=== PATIENT | male | born 1950 | race African-American/Black ===

== ENCOUNTER 2024-12-30 01:09 | Inpatient (IN) | payer MEDICARE, MEDICAID ==
[~2024-12-30] VITALS: Ht 165.1 cm; Wt 62.6 kg
[2024-12-30 04:02] LABS: BASOPHILS % 0.9 % (0.0-2.0); EOSINOPHILS % 1.5 % (0.0-5.0); HEMATOCRIT. 33.1 % (42.0-52.0); HEMOGLOBIN. 10.7 g/dL (14.0-18.0); LYMPHOCYTES % 34.3 % (20.0-50.0); MEAN CORPUSCULAR HGB CONC 32.5 g/dL (31.0-37.0); MEAN CORPUSCULAR VOLUME 89.1 fL (80.0-94.0); MEAN PLATELET VOLUME 8.3 fl (7.4-10.4); MONOCYTES % 13.9 % (2.0-8.0); NEUTROPHILS % 49.4 % (40.0-76.0); PLATELET 283 x1000/uL (130-400); RED BLOOD CELL COUNT 3.71 mill/uL (4.7-6.1); RED CELL DISTRIBUTION WIDTH 17.6 % (11.6-14.6)
[2024-12-30 04:11] LABS: CHLORIDE 104 mEq/L (98-107); POTASSIUM 3.8 mEq/L (3.5-5.1); SODIUM 137 mEq/L (136-145)
[2024-12-30 04:12] LABS: CALCIUM 9.2 mg/dL (8.7-10.4); CARBON DIOXIDE 30 mEq/L (21-32)
[2024-12-30 04:17] LABS: CREATININE 0.6 mg/dL (0.6-1.3); GLUCOSE 83 mg/dL (70-105); UREA NITROGEN BLOOD 17 mg/dL (9-23)
[2024-12-30 04:19] LABS: INR 1.1; PARTIAL THROMBOPLASTIN TIME 41.6 sec (23.4-31.0); PROTHROMBIN TIME 12.2 sec (9.6-11.0)
[2024-12-30] MEDS: SODIUM CHLORIDE 0.9% 1,000 ML IV ONE ×2 (04:31→08:45)
[2024-12-30] MEDS: SODIUM CHLORIDE 0.9% (SEPSIS BOLUS) IV ONE (05:31)
[2024-12-30 05:40] LABS: TROPONIN I HIGH SENSITIVITY 4 ng/L (3.0-53)
[2024-12-30] MEDS: PIPERACILLIN/TAZO 3.375G/50ML 50 ML IV ONE (06:05)
[2024-12-30] MEDS: VANCOMYCIN 1G PREMIX 200 ML IV ONE (06:27)
[2024-12-30] MEDS ORDERED: ACETAMINOPHEN 325MG TABLET PO PRN ×2 (06:30)
[2024-12-30] MEDS ORDERED: IPRATROPIUM/ALBUTEROL 0.5-3(2.5)MG/3ML NEB NEB PRN (06:30)
[2024-12-30] MEDS ORDERED: CLONIDINE 0.1MG TABLET PO PRN (06:30)
[2024-12-30] MEDS ORDERED: ONDANSETRON HCL 4MG/2ML INJ IV PRN (06:30)
[2024-12-30] MEDS ORDERED: ENOXAPARIN 40MG/0.4ML SYR SUBCUT SCH (06:30)
[2024-12-30] MEDS ORDERED: MAGNESIUM/ALUMINUM HYDROXIDE/SIMETHICONE 30ML UDC PO PRN (06:30)
[2024-12-30 07:30] VITALS: BP 83/42; PULSE 54; RESP 12; O2SAT 98
[2024-12-30 08:00] VITALS: BP 82/54; PULSE 45; RESP 16; TEMP 35.6; O2SAT 100
[2024-12-30] MEDS ORDERED: SODIUM CHLORIDE 0.9% 1,000 ML IV SCH (08:45)
[2024-12-30 10:13] LABS: PHOSPHORUS 3.9 mg/dL (2.5-4.9)
[2024-12-30 11:28] VITALS: BP 83/42; PULSE 54; RESP 18; TEMP 36.7
[2024-12-30 12:00] VITALS: BP 88/57; PULSE 42; RESP 16; O2SAT 99
[2024-12-30] MEDS: LEVOTHYROXINE SODIUM 100MCG TABLET PO SCH (12:30)
[2024-12-30] MEDS: ENOXAPARIN 30MG/0.3ML SYR SUBCUT SCH (12:45)
[2024-12-30] MEDS: MAGNESIUM 2 G PREMIX 50 ML IV NR (12:46)
[2024-12-30] MEDS: DEXT 5%/0.9% NACL 1,000 ML IV SCH (12:47)
[2024-12-30] MEDS: SODIUM CHLORIDE 0.9% 500 ML IV ONE ×2 (12:58→13:00)
[2024-12-30] MEDS: SODIUM CHLORIDE 0.9% 1,000 ML IV SCH (13:00)
[2024-12-30] MEDS: PANTOPRAZOLE SODIUM 40 MG/VIAL IV SCH (14:28)
[2024-12-30 16:00] VITALS: BP_SYST 115; BP_SYST 88; BP_DIAS 57; BP_DIAS 64; PULSE 54; RESP 16; TEMP 36.7; O2SAT 100
[2024-12-30] MEDS ORDERED: DEXTROSE 50% WATER 50ML SYRINGE IV SCH (17:00)
[2024-12-30 20:00] VITALS: BP 121/72; PULSE 47; RESP 16; TEMP 32.5; O2SAT 97
[2024-12-30 20:17] LABS: T4 FREE 1.11 ng/dL (0.89-1.76); THYROID STIMULATING HORMONE 10.1 uIU/mL (0.55-4.78)
[2024-12-30] MEDS: DEXT 5%/0.45% NACL 1000ML 1,000 ML IV SCH (21:02)
[2024-12-30] MEDS: ATORVASTATIN CALCIUM 40MG TABLET PO SCH (23:20)
[2024-12-30] MEDS ORDERED: ATROPINE SULFATE 1MG/ML VIAL IV PRN (23:30)
[2024-12-30] MEDS ORDERED: ATROPINE SULFATE 1MG/10ML SYR IV PRN (23:32)
[2024-12-31] VITALS (12 sets, daily range): BP systolic 96–131; BP diastolic 64–90; PULSE 43–58; RESP 10–22; TEMP 35.7–36.4; O2SAT 90–99
[2024-12-31] MEDS ORDERED: *PATIENT'S OWN MEDICATION STORAGE XX SCH (03:45)
[2024-12-31 05:30] LABS: INR 1.1; PROTHROMBIN TIME 11.9 sec (9.6-11.0)
[2024-12-31 05:40] LABS: CHLORIDE 109 mEq/L (98-107); POTASSIUM 3.5 mEq/L (3.5-5.1); SODIUM 139 mEq/L (136-145)
[2024-12-31 05:41] LABS: CALCIUM 8.4 mg/dL (8.7-10.4); CARBON DIOXIDE 25 mEq/L (21-32)
[2024-12-31 05:46] LABS: CREATININE 0.5 mg/dL (0.6-1.3); GLUCOSE 134 mg/dL (70-105); UREA NITROGEN BLOOD 12 mg/dL (9-23)
[2024-12-31 05:48] LABS: ALANINE AMINOTRANSFERASE 92 IU/L (10-49); ALBUMIN 2.9 g/dL (3.2-4.8); ASPARTATE AMINOTRANSFERASE 58 IU/L (<34)
[2024-12-31 05:49] LABS: BILIRUBIN TOTAL 0.4 mg/dL (0.1-1.0); PROTEIN TOTAL 5.6 g/dL (6.0-8.3)
[2024-12-31 06:00] LABS: BASOPHILS % 0.4 % (0.0-2.0); EOSINOPHILS % 1.8 % (0.0-5.0); HEMATOCRIT. 30.9 % (42.0-52.0); HEMOGLOBIN. 10.1 g/dL (14.0-18.0); LYMPHOCYTES % 58.5 % (20.0-50.0); MEAN CORPUSCULAR HEMOGLOBIN 29.1 pg (28.0-32.0); MEAN CORPUSCULAR HGB CONC 32.7 g/dL (31.0-37.0); MEAN CORPUSCULAR VOLUME 89.1 fL (80.0-94.0); MEAN PLATELET VOLUME 8.9 fl (7.4-10.4); NEUTROPHILS % 26.3 % (40.0-76.0); PLATELET 244 x1000/uL (130-400); RED BLOOD CELL COUNT 3.47 mill/uL (4.7-6.1); WHITE BLOOD COUNT 2.4 x1000/uL (4.5-11.0)
[2025-01-01] VITALS (12 sets, daily range): BP systolic 86–125; BP diastolic 59–85; PULSE 50–69; RESP 12–20; TEMP 36–37.2; O2SAT 94–98
[2025-01-01 06:24] LABS: CALCIUM 8.3 mg/dL (8.7-10.4); CARBON DIOXIDE 25 mEq/L (21-32); CHLORIDE 109 mEq/L (98-107); POTASSIUM 3.1 mEq/L (3.5-5.1); SODIUM 141 mEq/L (136-145)
[2025-01-01 06:25] LABS: HEMATOCRIT 29.3 % (42.0-52.0); HEMOGLOBIN 9.6 g/dL (14.0-18.0); MEAN CORPUSCULAR HEMOGLOBIN 29.2 pg (28.0-32.0); MEAN CORPUSCULAR HGB CONC 32.9 g/dL (31.0-37.0); PLATELET 236 x1000/uL (130-400); RED BLOOD CELL COUNT 3.29 mill/uL (4.7-6.1); RED CELL DISTRIBUTION WIDTH 17.6 % (11.6-14.6)
[2025-01-01 06:29] LABS: CREATININE 0.6 mg/dL (0.6-1.3)
[2025-01-01 06:30] LABS: GLUCOSE 114 mg/dL (70-105); UREA NITROGEN BLOOD 7 mg/dL (9-23)
[2025-01-01 06:32] LABS: PHOSPHORUS 2.7 mg/dL (2.5-4.9)
[2025-01-01] MEDS: FAMOTIDINE 20MG/2ML VIAL IV SCH (09:13)
[2025-01-01] MEDS: MAGNESIUM 2 G PREMIX 50 ML IV NR (12:44)
[2025-01-01] MEDS: KCL 20MEQ/100ML PREMIX 100 ML IV SCH (15:04)
[2025-01-02] VITALS (13 sets, daily range): BP systolic 95–128; BP diastolic 62–78; PULSE 40–90; RESP 10–18; TEMP 35.5–36.6; O2SAT 96–100
[2025-01-02 05:42] LABS: BASOPHILS % 0.2 % (0.0-2.0); EOSINOPHILS % 1.8 % (0.0-5.0); HEMATOCRIT. 28.7 % (42.0-52.0); HEMOGLOBIN. 9.4 g/dL (14.0-18.0); LYMPHOCYTES % 66.7 % (20.0-50.0); MEAN CORPUSCULAR HEMOGLOBIN 28.8 pg (28.0-32.0); MEAN CORPUSCULAR HGB CONC 32.6 g/dL (31.0-37.0); MEAN CORPUSCULAR VOLUME 88.4 fL (80.0-94.0); NEUTROPHILS % 18.3 % (40.0-76.0); PLATELET 205 x1000/uL (130-400); RED BLOOD CELL COUNT 3.25 mill/uL (4.7-6.1); WHITE BLOOD COUNT 2.7 x1000/uL (4.5-11.0)
[2025-01-02 06:21] LABS: CALCIUM 8.3 mg/dL (8.7-10.4); CARBON DIOXIDE 26 mEq/L (21-32); CHLORIDE 109 mEq/L (98-107); POTASSIUM 3.4 mEq/L (3.5-5.1); SODIUM 144 mEq/L (136-145)
[2025-01-02 06:26] LABS: CREATININE 0.6 mg/dL (0.6-1.3)
[2025-01-02 06:27] LABS: GLUCOSE 85 mg/dL (70-105); UREA NITROGEN BLOOD 5 mg/dL (9-23)
[2025-01-03] VITALS (12 sets, daily range): BP systolic 90–130; BP diastolic 55–79; PULSE 47–87; RESP 13–22; TEMP 36.2–36.9; O2SAT 95–99
[2025-01-03 06:45] LABS: BASOPHILS % 0.5 % (0.0-2.0); EOSINOPHILS % 1.7 % (0.0-5.0); HEMATOCRIT. 27.5 % (42.0-52.0); HEMOGLOBIN. 9.3 g/dL (14.0-18.0); LYMPHOCYTES % 60.7 % (20.0-50.0); MEAN CORPUSCULAR HEMOGLOBIN 29.8 pg (28.0-32.0); MEAN CORPUSCULAR HGB CONC 33.7 g/dL (31.0-37.0); MEAN CORPUSCULAR VOLUME 88.4 fL (80.0-94.0); MONOCYTES % 9.7 % (2.0-8.0); NEUTROPHILS % 27.4 % (40.0-76.0); PLATELET 190 x1000/uL (130-400); RED BLOOD CELL COUNT 3.11 mill/uL (4.7-6.1); RED CELL DISTRIBUTION WIDTH 17.7 % (11.6-14.6); WHITE BLOOD COUNT 3.2 x1000/uL (4.5-11.0)
[2025-01-03 06:51] LABS: CHLORIDE 112 mEq/L (98-107); POTASSIUM 3.5 mEq/L (3.5-5.1); SODIUM 144 mEq/L (136-145)
[2025-01-03 06:52] LABS: CALCIUM 8.3 mg/dL (8.7-10.4); CARBON DIOXIDE 27 mEq/L (21-32)
[2025-01-03 06:57] LABS: CREATININE 0.7 mg/dL (0.6-1.3); GLUCOSE 92 mg/dL (70-105); UREA NITROGEN BLOOD 8 mg/dL (9-23)
[2025-01-03] MEDS: MAGNESIUM 1 G PREMIX 100 ML IV SCH (15:49)
[2025-01-04] VITALS (7 sets, daily range): BP systolic 104–137; BP diastolic 70–83; PULSE 38–50; RESP 14–16; TEMP 35.8–37; O2SAT 95–98
[2025-01-04 07:35] LABS: BASOPHILS % 0.3 % (0.0-2.0); EOSINOPHILS % 3.5 % (0.0-5.0); HEMATOCRIT. 29.2 % (42.0-52.0); HEMOGLOBIN. 9.6 g/dL (14.0-18.0); LYMPHOCYTES % 68.9 % (20.0-50.0); MEAN CORPUSCULAR HEMOGLOBIN 29.1 pg (28.0-32.0); MEAN CORPUSCULAR HGB CONC 32.9 g/dL (31.0-37.0); MEAN CORPUSCULAR VOLUME 88.5 fL (80.0-94.0); MEAN PLATELET VOLUME 8.6 fl (7.4-10.4); MONOCYTES % 14.2 % (2.0-8.0); NEUTROPHILS % 13.1 % (40.0-76.0); PLATELET 185 x1000/uL (130-400); RED BLOOD CELL COUNT 3.31 mill/uL (4.7-6.1); RED CELL DISTRIBUTION WIDTH 17.3 % (11.6-14.6); WHITE BLOOD COUNT 2.7 x1000/uL (4.5-11.0)
[2025-01-04 07:45] LABS: CHLORIDE 109 mEq/L (98-107); POTASSIUM 3.2 mEq/L (3.5-5.1); SODIUM 143 mEq/L (136-145)
[2025-01-04 07:46] LABS: CARBON DIOXIDE 27 mEq/L (21-32)
[2025-01-04 07:47] LABS: CALCIUM 8.3 mg/dL (8.7-10.4)
[2025-01-04 07:51] LABS: CREATININE 0.5 mg/dL (0.6-1.3); GLUCOSE 116 mg/dL (70-105)
[2025-01-04 07:52] LABS: UREA NITROGEN BLOOD 6 mg/dL (9-23)
[2025-01-04] MEDS: POTASSIUM CHLORIDE 20MEQ TABLET SR PO NR (11:18)
[2025-01-04] MEDS ORDERED: APIX5TAB MT (12:42)
[2025-01-04] MEDS ORDERED: FAMO20TA8 PO (12:42)
[2025-01-04] MEDS ORDERED: LIP40 PO (12:42)
[2025-01-04] MEDS ORDERED: LEVO100T9 PO (12:42)
== END 2025-01-04 18:05 | DRG 393 ==
LOC: ER 01:09 → 5WST 05:28 → EDBEDREQTM 05:36 → EDBEDREQ 05:36 → ENRESERV 05:41 → 5EST 21:41 → 5WST 01-03 14:03
PROVIDERS: ADMIT Internal Medicine; ATTEND Internal Medicine
DX: K94.23 Gastrostomy malfunction (principal); E43 Unspecified severe protein-calorie malnutrition; I47.20 Ventricular tachycardia, unspecified; E03.9 Hypothyroidism, unspecified; E86.0 Dehydration; I10 Essential (primary) hypertension; I69.320 Aphasia following cerebral infarction; E78.00 Pure hypercholesterolemia, unspecified; F41.9 Anxiety disorder, unspecified; K21.9 Gastro-esophageal reflux disease without esophagitis; I69.391 Dysphagia following cerebral infarction; R62.7 Adult failure to thrive; R00.1 Bradycardia, unspecified; E87.6 Hypokalemia; Z68.23 Body mass index [BMI] 23.0-23.9, adult; E83.39 Other disorders of phosphorus metabolism; I95.9 Hypotension, unspecified; Z74.01 Bed confinement status; Z88.6 Allergy status to analgesic agent; Y83.3 Surgical operation with formation of external stoma as the cause of abnormal reaction of the patient, or of later complication, without mention of misadventure at the time of the procedure; Y82.8 Other medical devices associated with adverse incidents; Y92.89 Other specified places as the place of occurrence of the external cause; Z53.29 Procedure and treatment not carried out because of patient's decision for other reasons
CPT/HCPCS: 36415; 71045; 74018; 74230; 80048; 80053; 82962; 83605; 83735; 83880; 84100; 84134; 84145; 84439; 84443; 84484; 85025; 85027; 85379; 86850; 86900; 92610; 92611; 93005; 93970; 96360; 96361; 99285; A4606; J1308; J1650; J2470; J2543; J3370; J3475; J3480; J7030; J7042